=== PATIENT | male | born 1960 | race Caucasian/White ===

== ENCOUNTER → 2016-05-03 | Day surgery (SDC) | payer BC ==
[~2016-05-03] MED LIST: ALLEGRA ALLERG180 MG PO; ASPIR-TRIN325 MG PO; BENICAR20 MG; BYSTOLIC5 MG PO; COREG6.25 MG; COREG6.25 MG PO; HYDROCODON-ACE1 EAC5 PO; HYDROCODON-ACE1 EACH; HYDROCODON-ACE1 EACH PO; ISOSORBIDE DINI30 MG PO; LEVOTHYROXINE75 MC1 PO; LOSARTAN POTASS25 MG PO; MOBIC15 MG PO; MULTIVITAMIN1 UDCAP; OXYCODON HCL-AP1 TA2 PO; TIROSINT75 MCG PO; TOPIRAMATE25 MG PO; WELLBUTRIN100 MG PO; ZESTRIL10 MG PO; ZITHROMAX PO
--- NOTE | ~2016-05-03 | OR ---
Unit #: [id number] #: [id number] Patient: AMBER HOFFMAN [id number] [address] [address] [id number] O MR#: [id number] NAME: AMBER HOFFMAN. ROOM: Date of Procedure: 05/03/2016 Admission Date: 05/03/2016 Surgeon: Ariel Calvillo M.D. : 1960 Attending Physician: Ariel Calvillo M.D. Primary Care Physician: Jaylan Bradford M.D. OPERATIVE REPORT PREOPERATIVE DIAGNOSES 1. Herniated nucleus pulposus. 2. Radiculopathy. 3. Back pain. POSTOPERATIVE DIAGNOSES 1. Herniated nucleus pulposus. 2. Radiculopathy. 3. Back pain. PROCEDURE PERFORMED Lumbar epidural steroid injection with intravenous sedation and fluoroscopic guidance for needle localization. INDICATIONS FOR PROCEDURE The patient is a 55-year-old male with worsening back and left lower extremity pain due to known left-sided L4-L5 disk herniation. This is not settle with conservative measures. Plan is for trial of epidural steroids. Risks and benefits of all have been reviewed. DESCRIPTION OF PROCEDURE The patient was placed in a seated position. Standard monitors were applied. 2 mg of Versed were given for sedation and anxiolysis, which were adequate. Vital signs remained stable. Sterile prep and drape then of the lumbar area was performed. The skin then at the L5 level was localized with 1% lidocaine. An 18-gauge Hustead needle was then advanced via loss of resistance technique and fluoroscopic guidance in toward the epidural space. After confirming proper positioning with fluoroscopy and radiographic contrast, 80 mg of Depo-Medrol and 4 mL of 0.125% bupivacaine were deposited. The patient tolerated the procedure otherwise well and was discharged to recovery room in stable condition. Dictated by... Tonya Girard/dao TD: 05/04/2016 03:42 JOB #: [id number] Unit #: [id number] #: [id number] Patient: AMBER HOFFMAN OPERATIVE REPORT Page 1 of 1 X Ariel Calvillo MD X PROCEDURE OPERATIVE NOTE
== END | disposition home or self-care (01) ==
LOC: CCSC 10:47
DX: M51.16 Intervertebral disc disorders with radiculopathy, lumbar region (principal); I10 Essential (primary) hypertension
CPT/HCPCS: J1040; J2250

== ENCOUNTER → 2016-05-17 | Day surgery (SDC) | payer BC ==
--- NOTE | ~2016-05-17 | OR ---
Unit #: [id number] #: [id number] Patient: AMBER HOFFMAN [id number] [address] [address] [id number] O MR#: [id number] NAME: AMBER HOFFMAN ROOM: Date of Procedure: 05/17/2016 Admission Date: 05/17/2016 Surgeon: Ariel Calvillo M.D. : 1960 Attending Physician: Ariel Calvillo M.D. Primary Care Physician: Jaylan Bradford M.D. OPERATIVE REPORT PREOPERATIVE DIAGNOSES 1. Back pain. 2. Radiculopathy. 3. Lumbar disk herniation. POSTOPERATIVE DIAGNOSES 1. Back pain. 2. Radiculopathy. 3. Lumbar disk herniation. PROCEDURE PERFORMED Lumbar epidural steroid injection with intravenous sedation and fluoroscopic guidance for needle localization. INDICATIONS FOR PROCEDURE The patient is a 55-year-old male, who had worsening back, left buttock, and lower extremity pain. MRI has shown a left-sided L4-L5 disk herniation. He has failed to settle conservative measures. So, initial epidural steroid injection was done 2 weeks ago, which resulted in significant improvement of his left leg pain and moderate improvement in his back pain. He is sleeping much better 6 to 7 hours a night now versus 2 hours prior to the injection. Based on his good initial response, his continued symptomatology and the pathology present, we are going to proceed with a second epidural steroid injection today. DESCRIPTION OF PROCEDURE The patient was placed in the seated position. Standard monitors were applied. 2 mg of Versed were given for sedation and anxiolysis, which were adequate. Vital signs remained stable. Sterile prep and drape then of the lumbar area was performed. The skin then at the L4-L5 level was localized with 1% lidocaine. An 18-gauge Phoresttead needle was then advanced via loss of resistance technique and fluoroscopic guidance in toward the epidural space. After confirming proper positioning with fluoroscopy and radiographic contrast, 80 mg of Depo-Medrol and 4 mL of 0.125% bupivacaine were deposited. The patient tolerated the procedure otherwise well and was discharged to the recovery room in stable condition. Dictated by... Ariel Calvillo M.D. Unit #: [id number] #: [id number] Patient: AMBER HOFFMAN/dao TD: 05/18/2016 03:08 JOB #: [id number] OPERATIVE REPORT Page 1 of 1 X Ariel Calvillo MD X PROCEDURE OPERATIVE NOTE
== END | disposition home or self-care (01) ==
LOC: CCSC 10:53
DX: M51.16 Intervertebral disc disorders with radiculopathy, lumbar region (principal); I10 Essential (primary) hypertension
CPT/HCPCS: J1040; J2250

== ENCOUNTER → 2016-05-31 | Day surgery (SDC) | payer BC ==
--- NOTE | ~2016-05-31 | OR ---
Unit #: [id number] #: [id number] Patient: AMBER HOFFMAN [id number] [address] [place], [place] [address] [id number] O MR#: [id number] NAME: AMBER HOFFMAN ROOM: Date of Procedure: 05/31/2016 Admission Date: 05/31/2016 Surgeon: Ariel Calvillo M.D. : 1960 Attending Physician: Ariel Calvillo M.D. Referring Physician: Ariel Calvillo M.D. Primary Care Physician: Jaylan Bradford M.D. OPERATIVE REPORT PREOPERATIVE DIAGNOSES 1. Nucleus pulposus. 2. Back pain. 3. Radiculopathy. POSTOPERATIVE DIAGNOSES 1. Nucleus pulposus. 2. Back pain. 3. Radiculopathy. PROCEDURE PERFORMED Lumbar epidural steroid injection with intravenous sedation and fluoroscopic guidance for needle localization. INDICATIONS FOR PROCEDURE The patient is a 55-year-old male presented with back, left buttock, and lower extremity pain, with left-sided L4-L5 disk herniation. This has not settled with conservative treatment. Decision was made to give a trial of epidural steroids treatment at this point over the last month or so. They have given additive significant reduction in his leg pain, moderate reduction in his back pain greatly increased his ability to work without limitation and he is sleeping much better. The back pain is got incrementally better, but still significant and plan is to proceed with a final injection and continued symptomatology at this level. DESCRIPTION OF PROCEDURE The patient was placed in a seated position. Standard monitors were applied. 2 mg of Versed were given for sedation and anxiolysis, which were adequate. Vital signs remained stable. Sterile prep and drape then of the lumbar area was performed. The skin then at the L4-L5 level was localized with 1% lidocaine. An 18-gauge Svpply needle was then advanced via loss of resistance technique and fluoroscopic guidance in toward the epidural space. After confirming proper positioning with fluoroscopy and radiographic contrast, 80 mg of Depo-Medrol and 4 mL of 0.125% bupivacaine were deposited. The patient tolerated the procedure otherwise well and was discharged to the recovery room in stable condition. Dictated by... Ariel Calvillo M.D. P/modl Unit #: [id number] #: [id number] Patient: AMBER HOFFMAN TD: 05/31/2016 13:02 JOB #: [id number] OPERATIVE REPORT Page 1 of 1 X Ariel Calvillo MD X PROCEDURE OPERATIVE NOTE
== END | disposition home or self-care (01) ==
LOC: CCSC 10:47
DX: M51.16 Intervertebral disc disorders with radiculopathy, lumbar region (principal); I10 Essential (primary) hypertension
CPT/HCPCS: 82947; J1040; J2250